=== PATIENT | male | born 1950 | race Caucasian/White ===

== ENCOUNTER 2016-12-18 13:54 | Emergency (ER) | payer MEDICARE, MEDICAID ==
--- NOTE | 2016-12-18 14:48 | ED ---
Lower Extremity - HPI Summary HPI Summary: Four days ago the patient bent down in his steel-toed boots and felt pain in the top of his left foot at the edge of the steel. He thought it would improve but his pain has continued and is worst when he is bearing weight. He denies numbness, tingling, and is able to bear weight with pain. He denies previous injury to this foot. - History of Current Complaint Chief Complaint: EDExtremityLower Stated Complaint: LT FOOT PAIN Time Seen by Provider: 12/18/16 14:08 Hx Obtained From: Patient Mechanism Of Injury: Blunt Trauma Onset of Pain: Immediate Onset/Duration: Still Present - 4 Severity Initially: Moderate Severity Currently: Severe Pain Intensity: 7 Timing: Constant Location: Is Discrete @ - top of left foot Character Of Pain: Aching, Throbbing Associated Signs And Symptoms: Positive: Swelling Aggravating Factor(s): Standing, Ambulation Alleviating Factor(s): Elevation Able to Bear Weight: Yes - Allergies/Home Medications Allergies/Adverse Reactions: Allergies Allergy/AdvReac Type Severity Reaction Status Date / Time No Known Allergies Allergy Verified 12/18/16 13:59 PMH/Surg Hx/FS Hx/Imm Hx Respiratory History: Reports: Hx Asthma - PT REPORTED, Hx Chronic Obstructive Pulmonary Disease (COPD) - DIAGNOSED 2009 Infectious Disease History: No Infectious Disease History: Denies: Traveled Outside the [place] in Last 30 Days - Family History Known Family History: Positive: None - Social History Occupation: Employed Full-time Alcohol Use: None Substance Use Type: Reports: None Hx Tobacco Use: Yes Smoking Status (MU): Former Smoker Review of Systems Positive: Myalgia, Edema Negative: Paresthesia, Numbness All Other Systems Reviewed And Are Negative: Yes Physical Exam Triage Information Reviewed: Yes Vital Signs On Initial Exam: Initial Vitals Temp Pulse Resp BP Pulse Ox 96.1 F 68 17 140/80 100 12/18/16 13:55 12/18/16 13:55 12/18/16 13:55 12/18/16 13:55 12/18/16 13:55 Vital Signs Reviewed: Yes Appearance: Positive: Well-Appearing, Well-Nourished, Pain Distress Skin: Positive: Warm, Skin Color Reflects Adequate Perfusion, Dry, Soft Head/Face: Positive: Normal Head/Face Inspection Eyes: Positive: EOMI, RICK, Conjunctiva Clear ENT: Positive: Hearing grossly normal Respiratory/Lung Sounds: Positive: Breath Sounds Present Cardiovascular: Positive: RRR Musculoskeletal: Positive: Strength/ROM Intact, Pain @ - TTP dorsum of left mid foot, Edema Left - dorsum of left mid foot Neurological: Positive: Sensory/Motor Intact, Alert, Oriented to Person Place, Time, NV Bundle Intact Distally, Abnormal Gait Psychiatric: Positive: Affect/Mood Appropriate AVPU Assessment: Alert - Marshall Coma Scale Coma Scale Total: 15 Diagnostics - Vital Signs Vital Signs Temp Pulse Resp BP Pulse Ox 12/18/16 13:58 96.1 F 65 19 140/80 100 12/18/16 13:55 96.1 F 68 17 140/80 100 - Laboratory Lab Statement: Any lab studies that have been ordered have been reviewed, and results considered in the medical decision making process. - Radiology No standard instances Xray Interpretation: No Acute Changes Radiology Interpretation Completed By: Radiologist Lower Extremity Course/Dx - Diagnoses Differential Diagnosis/HQI/PQRI: Positive: Arthritis, Bursitis, Cellulitis, Compartment Syndrome, Contusion, Fracture (Closed), Infection, Sprain, Strain Provider Diagnoses: Contusion of left foot Discharge - Discharge Plan Condition: Stable Disposition: HOME Patient Education Materials: Foot Contusion (ED) Referrals: Haider Barnett MD [Primary Care Provider] - Additional Instructions: Use tylenol, elevation and rest to decrease swelling and pain. You can walk on your foot as pain allows. Follow-up with your primary care provider if symptoms do not begin to improve in the next 3-5 days. Return to the emergency department if symptoms worsen.
[2016-12-18] MEDS ORDERED: Acetaminophen TAB* 325 MG PO ONE (14:49)
--- NOTE | 2016-12-18 15:31 | RAD ---
INDICATION: Left foot pain COMPARISON: None TECHNIQUE: AP, lateral, and oblique views were obtained. FINDINGS: There is no acute fracture or dislocation. There is mild soft tissue swelling over the dorsum of the forefoot. IMPRESSION: NO ACUTE FRACTURE.
[2016-12-18 16:25] VITALS: BP 140/78
== END 2016-12-18 16:23 | disposition home or self-care (01) ==
LOC: ED 13:54
DX: S90.32XA Contusion of left foot, initial encounter (principal); M79.1 Myalgia; Z87.891 Personal history of nicotine dependence; W45.8XXA Other foreign body or object entering through skin, initial encounter; Y93.9 Activity, unspecified; Y92.9 Unspecified place or not applicable
CPT/HCPCS: 99282

== ENCOUNTER 2017-01-13 09:48 | Emergency (ER) | payer MEDICARE, MEDICAID ==
[2017-01-13 11:25] VITALS: BP 142/77
--- NOTE | 2017-01-13 14:16 | ED ---
Mark Gutierrez Auryana, scribed for Robb Frazier MD on 01/13/17 at 1117 . Respiratory - HPI Summary HPI Summary: 66 year old male presents with worsening seasonal allergies - trouble breathing and productive cough worse this morning. He also has rhinorrhea, wheezing, and watery eyes but denies any rashes and chest pain. He states that he has been using a nebulizer at home and has been using Advir with good management- wishes to get a refill today. He denies any history of COPD/emphysema. Patient is a former smoker. - History of Current Complaint Chief Complaint: EDUpperRespComplaint Stated Complaint: RX REFILL Time Seen by Provider: 01/13/17 10:30 Hx Obtained From: Patient Onset/Duration: Gradual Onset, Still Present, Worse Since - this morning Timing: Constant Current Severity: None Pain Intensity: 0 Sputum Amount: Moderate Sputum Color: Clear Associated Signs and Symptoms: Wheezing, Nasal Congestion - rhinorrhea, watery eyes and cough, Dyspnea Related History: Similar Episode/Dx as - see HPI- hx of seasonal allergies - Allergy/Home Medications Allergies/Adverse Reactions: Allergies Allergy/AdvReac Type Severity Reaction Status Date / Time No Known Allergies Allergy Verified 12/18/16 13:59 PMH/Surg Hx/FS Hx/Imm Hx Respiratory History: Reports: Hx Asthma - PT REPORTED, Hx Chronic Obstructive Pulmonary Disease (COPD) - DIAGNOSED 2009 Infectious Disease History: No Infectious Disease History: Denies: Traveled Outside the [place] in Last 30 Days - Family History Known Family History: Positive: None - Social History Alcohol Use: None Substance Use Type: Reports: None Hx Tobacco Use: Yes Smoking Status (MU): Former Smoker Review of Systems Constitutional: Negative Negative: Fever Positive: Other - watery eyes Positive: Nasal Discharge Cardiovascular: Negative Positive: Shortness Of Breath, Cough Gastrointestinal: Negative Genitourinary: Negative Musculoskeletal: Negative Skin: Negative Neurological: Negative Psychological: Normal All Other Systems Reviewed And Are Negative: Yes Physical Exam - Summary Physical Exam Summary: The patient is well-nourished in no acute distress and in no acute pain. The skin is warm and dry and skin color reflects adequate perfusion. HEENT: The head is normocephalic and atraumatic. The pupils are equal and reactive. The conjunctivae are clear and without drainage. Nares are patent and without drainage. Mouth reveals moist mucous membranes and the throat is without erythema and exudate. The external ears are intact. The ear canals are without drainage- right ear cerumen impacted. The tympanic membranes are intact. No watery eyes. Neck is supple with full range of motion and non-tender. There are no carotid bruits. There is no neck vein distension. Respiratory: Chest is non-tender. Lungs have diffuse wheezing throughout and breath sounds are symmetrical and equal. Cardiovascular: Hear is regular rate and rhythm. There is no murmur or rub auscultated. There is no peripheral edema and pulses are symmetrical and equal. Abdomen: The abdomen is soft and non-tender. There are normal bowel sounds heard in all four quadrants and there is no organomegaly palpated. Musculoskeletal: There is no back pain noted. Extremities are non-tender with full range of motion. There is good capillary refill. There is no peripheral edema or calf tenderness elicited. Neurological: Patient is alert and oriented to person, place and time. The patient has symmetrical motor strength in all four extremities. Cranial nerves are grossly intact. Deep tendon reflexes are symmetrical and equal in all four extremities. Psychiatric: The patient has an appropriate affect and does not exhibit any anxiety or depression. y Triage Information Reviewed: Yes Vital Signs On Initial Exam: Initial Vitals Temp Pulse Resp BP Pulse Ox 97.8 F 83 20 155/83 97 01/13/17 09:51 01/13/17 09:51 01/13/17 09:51 01/13/17 09:51 01/13/17 09:51 Vital Signs Reviewed: Yes Diagnostics - Vital Signs Vital Signs Temp Pulse Resp BP Pulse Ox 01/13/17 09:54 97.9 F 84 20 155/83 98 01/13/17 09:51 97.8 F 83 20 155/83 97 - Laboratory Lab Statement: Any lab studies that have been ordered have been reviewed, and results considered in the medical decision making process. Disposition - Differential Dx - Cardiopulmonary Differential Diagnoses - Cardiopulmonary: Bronchitis, Sinusitis, Other - allergies, copd - Diagnoses Provider Diagnoses: Asthmatic bronchitis Discharge - Discharge Plan Condition: Stable Disposition: HOME Prescriptions: Fluticasone-Salmeterol 100-50* [Advair Diskus 100-50*] 1 puff INH BID #1 diskus predniSONE TAB* [Deltasone TAB*] 60 mg PO DAILY #15 tab Patient Education Materials: Asthma (ED), Acute Bronchitis (ED), Allergies (ED) Referrals: Haider Barnett MD [Primary Care Provider] - The documentation as recorded by the Mark james Auryana accurately reflects the service I personally performed and the decisions made by me, Robb Frazier MD.
== END 2017-01-13 11:24 | disposition home or self-care (01) ==
LOC: ED 09:48
DX: J45.909 Unspecified asthma, uncomplicated (principal); R09.81 Nasal congestion; J34.89 Other specified disorders of nose and nasal sinuses; R05 Cough; R06.00 Dyspnea, unspecified
CPT/HCPCS: 99281

== ENCOUNTER 2017-03-13 08:42 | Emergency (ER) | payer MEDICARE, MEDICAID ==
--- NOTE | 2017-03-13 09:40 | RAD ---
INDICATION: Left knee pain COMPARISON: None TECHNIQUE: AP, lateral, tunnel, and sunrise views were obtained. FINDINGS: The bony structures, joint spaces, and soft tissues are normal for age. IMPRESSION: NORMAL EXAM.
--- NOTE | 2017-03-13 09:44 | ED ---
Lower Extremity - HPI Summary HPI Summary: The pt is a 66 y/o M presenting to the ED c/o L knee pain that began 3 weeks ago. The pain has an ache quality and is rated 7/10. There is pain during ambulation and weight bearing. There is no pain when lying or sitting. He states the initially pain started when he was on his knee and he felt a sharp pain. Since then the pain has moved to the medial aspect of his knee. He is on warfarin. He has been taking Tylenol for pain. He denies any injury to the area. He denies any weakness, popping, clicking or locking. 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 - History of Current Complaint Chief Complaint: EDExtremityLower Stated Complaint: KNEE PAIN Time Seen by Provider: 03/13/17 08:53 Pain Intensity: 7 - Allergies/Home Medications Allergies/Adverse Reactions: Allergies Allergy/AdvReac Type Severity Reaction Status Date / Time No Known Allergies Allergy Verified 03/13/17 08:54 PMH/Surg Hx/FS Hx/Imm Hx Endocrine/Hematology History: Reports: Hx Anticoagulant Therapy Respiratory History: Reports: Hx Asthma - PT REPORTED, Hx Chronic Obstructive Pulmonary Disease (COPD) - DIAGNOSED 2009 Infectious Disease History: No Infectious Disease History: Denies: Traveled Outside the [place] in Last 30 Days - Family History Known Family History: Positive: None, Cardiac Disease - Social History Alcohol Use: None Substance Use Type: Reports: None Hx Tobacco Use: Yes Smoking Status (MU): Former Smoker Review of Systems Negative: Fever Negative: Chest Pain Negative: Shortness Of Breath Positive: Myalgia - left knee pain All Other Systems Reviewed And Are Negative: Yes Physical Exam Triage Information Reviewed: Yes Vital Signs On Initial Exam: Initial Vitals Temp Pulse Resp BP Pulse Ox 97.8 F 66 18 135/79 97 03/13/17 08:43 03/13/17 08:43 03/13/17 08:43 03/13/17 08:43 03/13/17 08:43 Vital Signs Reviewed: Yes Appearance: Positive: Well-Appearing Skin: Positive: Warm, Dry Head/Face: Positive: Normal Head/Face Inspection Eyes: Positive: Normal, Conjunctiva Clear Respiratory/Lung Sounds: Positive: Clear to Auscultation, Breath Sounds Present Cardiovascular: Positive: Normal, RRR Musculoskeletal: Positive: Strength/ROM Intact - left knee, Other - good pulses , sensation grossly intact, neg ballotment, anterior and posterior drawer and zoey Neurological: Positive: Reflexes Intact - patella Diagnostics - Vital Signs Vital Signs Temp Pulse Resp BP Pulse Ox 03/13/17 08:50 97.8 F 66 18 135/79 97 03/13/17 08:43 97.8 F 66 18 135/79 97 - Laboratory Lab Statement: Any lab studies that have been ordered have been reviewed, and results considered in the medical decision making process. - Radiology knee Xray Interpretation: No Acute Changes Radiology Interpretation Completed By: Radiologist Lower Extremity Course/Dx - Course Course Of Treatment: 66 y/o M c/o L knee pain that began 3 weeks ago. The pain has an ache quality and is rated 7/10. There is pain during ambulation and weight bearing. There is no pain when lying or sitting. He states the initially pain started when he was on his knee and he felt a sharp pain. Since then the pain has moved to the medial aspect of his knee. He is on warfarin. He has been taking Tylenol for pain. He denies any injury to the area. He denies any weakness, popping, clicking or locking. on exam no edema. neg anterior drawer or zoey. normal xray. suspect potenital bursitis type pain due to occurred first when kneeling. told to follow RICE and follow up with primary. patient understands and agrees with plan - Diagnoses Differential Diagnosis/HQI/PQRI: Positive: Fracture (Closed), Sprain, Strain Provider Diagnoses: Left knee pain Discharge - Discharge Plan Condition: Good Disposition: HOME Patient Education Materials: Knee Pain (ED) Referrals: Haider Barnett MD [Primary Care Provider] - Additional Instructions: Take Tylenol every 6 hours as needed for pain Apply ice, rest, elevate Follow up with primary care physician within 7 days Return to ED if develop any new or worsening symptoms
[2017-03-13 09:57] VITALS: BP 133/78
== END 2017-03-13 09:57 | disposition home or self-care (01) ==
LOC: ED 08:42
DX: M25.562 Pain in left knee (principal); Z87.891 Personal history of nicotine dependence; Z79.01 Long term (current) use of anticoagulants; J44.9 Chronic obstructive pulmonary disease, unspecified
CPT/HCPCS: 99282

== ENCOUNTER → 2018-03-21 19:59 | Emergency (ER) | payer MEDICARE, MEDICAID ==
[2018-03-21 20:08] VITALS: BP 125/74
== END | disposition left against medical advice (07) ==
LOC: ED 19:59
DX: M25.562 Pain in left knee (principal); M25.561 Pain in right knee; Z53.21 Procedure and treatment not carried out due to patient leaving prior to being seen by health care provider

== ENCOUNTER 2018-03-22 09:31 | Emergency (ER) | payer MEDICARE, MEDICAID ==
[2018-03-22] MEDS ORDERED: Acetaminophen TAB* 325 MG PO ONE (10:40)
--- NOTE | 2018-03-22 10:54 | ED ---
Lower Extremity - HPI Summary HPI Summary: Patient presents with bilateral hip and knee pain over the past 2 months. He reports this got progressively worse yesterday and he had difficulty sleeping despite taking 500 mg of Tylenol which took the edge off only. No known injury over use or under use to report. He's noticed stiffness in his knees with transition from sitting to standing after a period of time. He's especially noticed swelling behind his Rt knee when pain is bad. Also has stiffness in his hips however he does feel a little more loose/less pain after mobilizing for a bit. He also mentions a catching in his back when he goes from bending to standing back up. Denies numbness, tingling, weakness in the lower extremities and no change in bowel or bladder habits. He does not have a history of known arthritis. He is not able to take NSAIDs due to his Coumadin intake for history of clots. He typically sees Dr. Martinez for PCP issues however did not schedule an appointment there today for his chronic pain as he feels he has to wait too long at the office. Follow w/ Dr. Andujar for his clotting disorder. Denies chest pain, shortness of breath, cough, fever, calf pain or leg cramping/ swelling/redness. NOTE: He is due for routine labs tomorrow. - History of Current Complaint Chief Complaint: EDExtremityLower Stated Complaint: LEG PAIN Time Seen by Provider: 03/22/18 09:45 Hx Obtained From: Patient Pain Intensity: 7 - Allergies/Home Medications Allergies/Adverse Reactions: Allergies Allergy/AdvReac Type Severity Reaction Status Date / Time No Known Allergies Allergy Verified 03/22/18 09:37 Home Medications: Home Medications Aspirin EC TAB* [Ecotrin EC Low Dose 81 MG*] 81 mg PO DAILY 03/22/18 [History Confirmed 03/22/18] Fluticasone-Salmeterol 100-50* [Advair Diskus 100-50*] 1 puff INH BID 03/22/18 [ History Confirmed 03/22/18] Lisinopril TAB* [Prinivil TAB*] 20 mg PO DAILY 03/22/18 [History Confirmed 03/22] Metoprolol Tartrate TAB* [Lopressor TAB*] 25 mg PO DAILY 03/22/18 [History Confirmed 03/22/18] Simvastatin (NF) [Zocor (NF)] 40 mg PO DAILY 03/22/18 [History Confirmed ] Warfarin TAB(*) [Coumadin TAB(*)] 3 mg PO EVERY OTHER DAY 03/22/18 [History Confirmed 03/22/18] Warfarin TAB(*) [Coumadin TAB(*)] 4 mg PO EVERY OTHER DAY 03/22/18 [History Confirmed 03/22/18] PMH/Surg Hx/FS Hx/Imm Hx Previously Healthy: Yes Endocrine/Hematology History: Reports: Hx Anticoagulant Therapy - coumadin, Hx Coagulopothy - h/o clots Respiratory History: Reports: Hx Asthma - PT REPORTED, Hx Chronic Obstructive Pulmonary Disease (COPD) - DIAGNOSED 2009 Musculoskeletal History: Denies: Hx Arthritis Infectious Disease History: No Infectious Disease History: Denies: Traveled Outside the [place] in Last 30 Days - Family History Known Family History: Positive: Cardiac Disease, Other - POS: asthma - Social History Occupation: Employed Part-time - 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 Lives: With Family - Alcohol Use: None Hx Substance Use: No Substance Use Type: Reports: None Hx Tobacco Use: Yes Smoking Status (MU): Former Smoker Review of Systems Constitutional: Negative Negative: Fever, Chills, Fatigue Cardiovascular: Negative Respiratory: Negative Gastrointestinal: Negative Genitourinary: Negative Positive: Arthralgia, Myalgia Skin: Negative Neurological: Negative Psychological: Normal All Other Systems Reviewed And Are Negative: Yes Physical Exam Triage Information Reviewed: Yes Vital Signs On Initial Exam: Initial Vitals Temp Pulse Resp BP Pulse Ox 98.2 F 64 16 141/70 98 03/22/18 09:33 03/22/18 09:33 03/22/18 09:33 03/22/18 09:33 03/22/18 09:33 Vital Signs Reviewed: Yes Appearance: Positive: Well-Appearing, No Pain Distress, Well-Nourished Skin: Positive: Warm, Skin Color Reflects Adequate Perfusion, Dry - no erythema , no edema, no ecchymosis no lesions over LE's Head/Face: Positive: Normal Head/Face Inspection Eyes: Positive: EOMI ENT: Positive: Hearing grossly normal Respiratory/Lung Sounds: Positive: Breath Sounds Present Cardiovascular: Positive: Pulses are Symmetrical in both Upper and Lower Extremities. Negative: Leg Edema Left, Leg Edema Right - (-) Aaliyah's B/L Musculoskeletal: Positive: Strength/ROM Intact, Pain @ - + Sergo's test B/L; Rt knee stiffness/ pain behind knee w/ flexion; lumbar spine and paraspinal mm are NTTP Neurological: Positive: Normal, Sensory/Motor Intact, Alert, Oriented to Person Place, Time, CN Intact II-III, Reflexes Intact Psychiatric: Positive: Normal Diagnostics - Vital Signs Vital Signs Temp Pulse Resp BP Pulse Ox 03/22/18 09:33 98.2 F 64 16 141/70 98 - Laboratory Lab Statement: Any lab studies that have been ordered have been reviewed, and results considered in the medical decision making process. Lower Extremity Course/Dx - Course Course Of Treatment: XR's : OA in all joint assessed w/o fx, dislocation or lytic lesions. Discussed tx w/ acetaminophen until f/u w/ PCP. Also recommend adding labs to routine labs for autoimmune arthritis. Pt agrees w/ plan. - Diagnoses Provider Diagnoses: Arthritis of both knees, Arthritis of both hips, Arthritis, lumbar spine Discharge - Sign-Out/Discharge Documenting (check all that apply): Patient Departure - Discharge Plan Condition: Stable Disposition: HOME Patient Education Materials: Osteoarthritis (ED) Referrals: Haider Barnett MD [Primary Care Provider] - Additional Instructions: You appear to have arthritis in your spine, hips and knees. This may be treated with extra strength Tylenol and topical analgesics such as Biofreeze, BenGay, etc - check ingredients for aspirin - if present, do not use. It is important that you continue to avoid NSAIDs as you're on a blood thinning medication. Follow-up with her PCP for additional treatment as needed (ie. steroids). You may also have additional labs added to your routine labs today to assess for autoimmune arthritis. These may include but are not limited to a rheumatoid factor, VARINDER, ESR and Lyme panel. - Billing Disposition and Condition Condition: STABLE Disposition: Home
--- NOTE | 2018-03-22 11:57 | RAD ---
HISTORY: B/L hip pain COMPARISONS: None VIEWS: 5, Frontal view of the pelvis with frontal and frog-leg views of the left hip and of the right hip FINDINGS: Right: BONE DENSITY: Normal. BONES: There is no displaced fracture. JOINTS: There is mild osteoarthritis of the right hip. ALIGNMENT: There is no dislocation. The alignment is anatomic. SOFT TISSUES: Unremarkable. Left: BONE DENSITY: Normal. BONES: There is no displaced fracture. JOINTS: There is mild osteoarthritis of the left hip. ALIGNMENT: There is no dislocation. The alignment is anatomic. SOFT TISSUES: Unremarkable. OTHER FINDINGS: None. IMPRESSION: BILATERAL MILD OSTEOARTHRITIS. NO ACUTE OSSEOUS INJURY. IF SYMPTOMS PERSIST, RECOMMEND REPEAT IMAGING.
--- NOTE | 2018-03-22 11:58 | RAD ---
HISTORY: B/L knee pain, stiffness COMPARISONS: None VIEWS: 3, frontal views of both knees with lateral views of the left knee and of the right knee FINDINGS: Right: BONE DENSITY: Normal. BONES: There is no displaced fracture. JOINTS: There is no arthropathy. There is no suprapatellar joint effusion or lipohemarthrosis. ALIGNMENT: There is no dislocation. The alignment is anatomic. SOFT TISSUES: Unremarkable. Left: BONE DENSITY: Normal. BONES: There is no displaced fracture. JOINTS: There is no arthropathy. There is no suprapatellar joint effusion or lipohemarthrosis. ALIGNMENT: There is no dislocation. The alignment is anatomic. SOFT TISSUES: Unremarkable. OTHER FINDINGS: None. IMPRESSION: NO ACUTE OSSEOUS INJURY BILATERALLY. IF SYMPTOMS PERSIST, RECOMMEND REPEAT IMAGING.
--- NOTE | 2018-03-22 11:59 | RAD ---
HISTORY: Lumbar pain worse w/ flexion/extension COMPARISONS: None VIEWS: 3 , Frontal, lateral, and coned-down lateral sacral views of the lumbar spine FINDINGS: ALIGNMENT: The alignment is normal. VERTEBRAL BODIES: The vertebral body heights are normal. The interpedicular distances are normal. There is mild anterolateral marginal osteophyte formation. Incidentally noted is a small accessory rib at L1 on the right. JOINTS: There is mild facet hypertrophic change. INTERVERTEBRAL DISCS: There is mild diffuse loss of intervertebral disc height. SOFT TISSUE: Unremarkable. OTHER: The pelvis is unremarkable. The lung bases are clear. IMPRESSION: MILD DEGENERATIVE DISC DISEASE AND OSTEOARTHRITIS.
[2018-03-22 12:23] VITALS: BP 133/70
== END 2018-03-22 12:21 | disposition home or self-care (01) ==
LOC: ED 09:31
DX: M17.0 Bilateral primary osteoarthritis of knee (principal); M16.0 Bilateral primary osteoarthritis of hip; M51.36 Other intervertebral disc degeneration, lumbar region; Z87.891 Personal history of nicotine dependence
CPT/HCPCS: 72100; 73523; 99282; A9270-GY

== ENCOUNTER 2019-11-05 16:30 | Emergency (ER) | payer MEDICARE, MEDICAID ==
[2019-11-05] MEDS ORDERED: Triamcinolone 0.025% OINT * 15 GM TUBE TOPICAL SCH (19:00)
[2019-11-05] MEDS ORDERED: Nystatin OINT* 15 GM TOPICAL SCH (19:00)
--- NOTE | 2019-11-05 19:05 | ED ---
Skin Complaint - HPI Summary HPI Summary: Patient complains of painful pruritic rash bilateral inguinal creases, scrotum, rectum, 2-3 weeks, rash in center of chest 3 weeks. Patient has been putting OTC meds with no improvement. History of chronic rectal rash for 10 years. Denies any other symptoms, pain or injury. Medical history is chronic rash. - History of Current Complaint Chief Complaint: EDRashSkinAbscess Time Seen by Provider: 11/05/19 17:50 Stated Complaint: RASH PER PT Hx Obtained From: Patient Onset/Duration: Started Weeks Ago Skin Exposure Onset/Duration: Weeks Ago Timing: Constant Current Severity: None Pain Intensity: 0 Pain Scale Used: 0-10 Numeric Skin Location: Chest, Other: - Bilateral inguinal creases Character: Pruritus, Pain, Redness Aggravating Symptom(s): Touch Alleviating Symptom(s): Nothing Associated Signs & Symptoms: Rash - Allergy/Home Medications Allergies/Adverse Reactions: Allergies Allergy/AdvReac Type Severity Reaction Status Date / Time No Known Allergies Allergy Verified 11/06/19 08:39 Home Medications: Home Medications Aspirin EC TAB* [Ecotrin EC Low Dose 81 MG*] 81 mg PO DAILY 03/22/18 [History Confirmed 03/15/19] Fluticasone-Salmeterol 100-50* [Advair Diskus 100-50*] 1 puff INH BID 03/22/18 [ History Confirmed 03/15/19] Lisinopril TAB* [Prinivil TAB*] 20 mg PO DAILY 03/22/18 [History Confirmed 03/15] Metoprolol Tartrate TAB* [Lopressor TAB*] 25 mg PO DAILY 03/22/18 [History Confirmed 03/15/19] Simvastatin (NF) [Zocor (NF)] 40 mg PO DAILY 03/22/18 [History Confirmed ] Warfarin TAB(*) [Coumadin TAB(*)] 3 mg PO EVERY OTHER DAY 03/22/18 [History Confirmed 03/15/19] Warfarin TAB(*) [Coumadin TAB(*)] 4 mg PO EVERY OTHER DAY 03/22/18 [History Confirmed 03/15/19] Penicillin VK 500 MG TAB(NF) [Penicillin VK 500 mg Tab] 500 mg PO QID #40 tab [Rx] traMADol TAB* [Ultram*] 50 mg PO Q6HR PRN 03/15/19 [History Confirmed 03/15/19] PMH/Surg Hx/FS Hx/Imm Hx Endocrine/Hematology History: Reports: Hx Anticoagulant Therapy - coumadin Cardiovascular History: Denies: Hx Pacemaker/ICD Respiratory History: Reports: Hx Asthma - PT REPORTED, Hx Chronic Obstructive Pulmonary Disease (COPD) - DIAGNOSED 2009 Musculoskeletal History: Denies: Hx Arthritis Sensory History: Denies: Hx Eye Prosthesis Opthamlomology History: Denies: Hx Legally Blind EENT History: Denies: Hx Deafness Infectious Disease History: No Infectious Disease History: Denies: Traveled Outside the [place] in Last 30 Days - Family History Known Family History: Positive: None, Cardiac Disease, Other - POS: asthma, Non- Contributory - Social History Alcohol Use: None Hx Substance Use: No Substance Use Type: Reports: Marijuana Hx Tobacco Use: Yes Smoking Status (MU): Former Smoker Review of Systems Constitutional: Negative Eyes: Negative ENT: Negative Cardiovascular: Negative Respiratory: Negative Gastrointestinal: Negative Genitourinary: Negative Musculoskeletal: Negative Positive: Rash Neurological/Mental Status: Negative Psychological: Normal All Other Systems Reviewed And Are Negative: Yes Physical Exam - Summary Physical Exam Summary: Erythematous, oozing rash to bilateral inguinal creases, scrotum and rectum consistent with candidiasis. Rash along midline of chest consistent with eczema. Triage Information Reviewed: Yes Vital Signs On Initial Exam: Initial Vitals Temp Pulse Resp BP Pulse Ox 97.8 F 72 18 161/91 98 11/05/19 16:33 11/05/19 16:33 11/05/19 16:33 11/05/19 16:33 11/05/19 16:33 Vital Signs Reviewed: Yes Appearance: Positive: Well-Appearing Skin: Positive: Warm Head/Face: Positive: Normal Head/Face Inspection Eyes: Positive: Normal Neck: Positive: Supple Respiratory/Lung Sounds: Positive: Clear to Auscultation Cardiovascular: Positive: Normal Abdomen Description: Positive: Nontender Male Genital Exam: Positive: Erythema. Negative: Epididymal Tenderness, Scrotum Tenderness (R), Scrotum Tenderness (L), Testicular Tenderness (R), Testicular Tenderness (L), Urethral Discharge Musculoskeletal: Positive: Normal Neurological: Positive: Normal Psychiatric: Positive: Normal AVPU Assessment: Alert - [place] Coma Scale Best Eye Response: 4 - Spontaneous Best Motor Response: 6 - Obeys Commands Best Verbal Response: 5 - Oriented Coma Scale Total: 15 Procedures - Sedation Patient Received Moderate/Deep Sedation with Procedure: No Diagnostics - Vital Signs Vital Signs Temp Pulse Resp BP Pulse Ox 11/05/19 16:33 97.8 F 72 18 161/91 98 - Laboratory Lab Statement: Any lab studies that have been ordered have been reviewed, and results considered in the medical decision making process. Course/Dx - Course Course Of Treatment: Patient complains of painful pruritic rash bilateral inguinal creases, scrotum, rectum, 2-3 weeks, rash in center of chest 3 weeks. Patient has been putting OTC meds with no improvement. History of chronic rectal rash for 10 years. Denies any other symptoms, pain or injury. Medical history is chronic rash. Vital signs within normal limits. Rx for her triamcinolone for chest rash. Rx for nystatin for candidiasis of the groin and rectum. - Diagnoses Provider Diagnoses: Yeast infection of the skin, Rash Discharge ED - Sign-Out/Discharge Documenting (check all that apply): Patient Departure - Discharge Plan Condition: Stable Disposition: HOME Patient Education Materials: Skin Yeast Infection (ED) Referrals: Haider Barnett MD [Primary Care Provider] - Additional Instructions: Put triamcinolone cream on chest rash 3 times a day until resolved. Placed nystatin cream on groin and rectal rash 3 times a day for 2 weeks. Follow-up with dermatology for further evaluation. Return to the ED for any new or worsening symptoms. - Billing Disposition and Condition Condition: STABLE Disposition: Home - Attestation Statements Provider Attestation: 68 y/o male, asked to evaluate chest rash. Papular erythematous dry rash to chest. Advised to try short course steroid cream. Would benefit from derm referral. - Candace Arzola MD
[2019-11-05 19:11] VITALS: BP 143/85
[2019-11-05] MEDS ORDERED: Triamcinolone PASTE 0.1% (NF) 5 GM TUBE TOPICAL SCH (21:00)
== END 2019-11-05 19:05 | disposition home or self-care (01) ==
LOC: ED 16:30
DX: B37.2 Candidiasis of skin and nail (principal); J44.9 Chronic obstructive pulmonary disease, unspecified; Z87.891 Personal history of nicotine dependence; Z79.01 Long term (current) use of anticoagulants; Z79.82 Long term (current) use of aspirin; Z79.899 Other long term (current) drug therapy
CPT/HCPCS: 99282; A9270-GY

== ENCOUNTER 2019-11-06 08:32 | Emergency (ER) | payer MEDICARE, MEDICAID ==
[2019-11-06 08:39] VITALS: BP 147/83
== END 2019-11-06 10:51 | disposition left against medical advice (07) ==
LOC: ED 08:32
DX: R21 Rash and other nonspecific skin eruption (principal); Z53.21 Procedure and treatment not carried out due to patient leaving prior to being seen by health care provider
CPT/HCPCS: 99282

== ENCOUNTER 2024-05-17 11:49 | Observation (INO) ==
[2024-05-17 12:28] LABS: Hematocrit 45.9 % (38-53); Hemoglobin 15.1 g/dL (13.2-16.3); Mean Corpuscular Hemoglobin 29.7 pg (27-33); Mean Corpuscular Volume 90.1 fL (80-97); Mean Platelet Volume 7.9 fL (7.5-11.2); Platelet Count 268 10^3/uL (150-450); Red Cell Distribution Width 13.9 % (12-17); White Blood Count 16.6 10^3/uL (3.6-10.2)
[2024-05-17 12:37] LABS: INR 3.94 (0.85-1.14)
[2024-05-17 12:57] LABS: ABS Basophils 0.1 10^3/uL (0.0-0.1); ABS Eosinophils 0.2 10^3/uL (0.0-0.5); ABS Lymphocytes 2.1 10^3/uL (1.0-4.8); ABS Monocytes 1.7 10^3/uL (0.0-1.1); ABS Neutrophils 12.5 10^3/uL (1.5-7.6); ABS Nucleated RBC 0.01 10^3/ul; Eosinophil % 0.9 %; Lymphocyte % 12.9 %; Nucleated Red Blood Cells % 0.1 %/100WBC (0.0-0.8)
[2024-05-17 13:34] LABS: Albumin/Globulin Ratio 1.5 (1-3); Calcium 9.8 mg/dL (8.6-10.3); Creatinine, Serum 1.56 mg/dL (0.67-1.17); Globulin 2.7 g/dL (2-4); Potassium 4.3 mmol/L (3.5-5.0); Total Bilirubin 0.4 mg/dL (0.2-1.0); Total Protein 6.7 g/dL (6.4-8.9); eGFR CKD-EPI 47.2 (>60)
[2024-05-17 13:45] LABS: High Sensitivity Troponin 1 Hr 7 pg/mL (<20)
[2024-05-17] MEDS: Iodixanol (CONTRAST) 320 MG/ML 100 ML SDV IV ONE (14:29)
[2024-05-17] MEDS: Acetaminophen IV 1 GM/100ML 1,000 MG/100 ML BAG IV ONE (15:02)
[2024-05-17 17:13] LABS: High Sensitivity Troponin 3 Hr 8 pg/mL (<20)
[2024-05-17] MEDS: Heparin 5000 UNITS/ML 1 mL VIAL IV SCH (17:37)
[2024-05-17] MEDS: Heparin DRIP 25,000 UNITS BAG 25,000 UNITS/250 ML BAG IV SCH (17:38)
[2024-05-17] MEDS ORDERED: Albuterol 2.5mg/3 ml (0.083%) NEB.SOLN INH PRN (17:53)
[2024-05-17] MEDS ORDERED: Sulfur Hexaflouride MICROSPHR 25 MG VIAL IV PRN (17:55)
[2024-05-17] MEDS: Acetaminophen IV 1 GM/100ML 1,000 MG/100 ML BAG IV PRN (21:35)
[2024-05-17] MEDS: Albuterol/Ipratropium NEB.SOL (2.5/0.5 MG) 3 ML NEB.SOLN INH SCH (22:47)
[2024-05-18 05:42] LABS: ABS Lymphocytes 0.9 10^3/uL (1.0-4.8); ABS Monocytes 0.7 10^3/uL (0.0-1.1); ABS Neutrophils 14.1 10^3/uL (1.5-7.6); ABS Nucleated RBC 0.01 10^3/ul; Hematocrit 44.2 % (38-53); Hemoglobin 14.9 g/dL (13.2-16.3); Lymphocyte % 5.6 %; Mean Corpuscular Hemoglobin 30.3 pg (27-33); Mean Corpuscular Hgb Conc 33.7 g/dL (31-36); Mean Corpuscular Volume 90.1 fL (80-97); Mean Platelet Volume 8.1 fL (7.5-11.2); Nucleated Red Blood Cells % 0.1 %/100WBC (0.0-0.8); Platelet Count 255 10^3/uL (150-450); Red Blood Count 4.91 10^6/uL (4.06-5.63); Red Cell Distribution Width 13.9 % (12-17); White Blood Count 15.7 10^3/uL (3.6-10.2)
[2024-05-18 06:26] LABS: Calcium 8.6 mg/dL (8.6-10.3); Creatinine, Serum 1.45 mg/dL (0.67-1.17); Potassium 4.3 mmol/L (3.5-5.0); eGFR CKD-EPI 51.5 (>60)
[2024-05-18 11:16] LABS: Activated Partial Thrombo Time >400.0 seconds (26.0-38.0)
[2024-05-18 11:18] LABS: INR 4.54 (0.85-1.14)
[2024-05-18] MEDS ORDERED: Warfarin per PHARMACY **NOTE FOLLOW UP SCH (16:00)
[2024-05-18] MEDS ORDERED: Warfarin - No Order Today **NOTE FOLLOW UP ONE (17:00)
[2024-05-19 06:30] LABS: INR 2.93 (0.85-1.14)
[2024-05-19 09:58] VITALS: BP 130/65
== END 2024-05-19 14:20 | disposition home or self-care (01) ==
LOC: EDHOLD 11:49 → ED 11:49 → MEDTELE 20:12
PROVIDERS: ADMIT Student in an Organized Health Care Education/Training Program; ATTEND Student in an Organized Health Care Education/Training Program